=== PATIENT | male | born 1955 | race Hispanic/Latino ===

== ENCOUNTER → 2022-11-12 | Outpatient (CLI) | payer MEDICARE ==
[~2022-11-12] MED LIST: IOPAMIDOL 370 MG/ML 100 ML INFUS..BTL INJ ONE; SODIUM CHLORIDE 0.9% 100 ML ONE; SODIUM CHLORIDE 0.9% 500ML 500 ML ONE
[2022-11-12 13:49] LABS: CREATININE, SERUM 1.76 mg/dL (0.72-1.25)
== END ==
LOC: CT 12:58
PROVIDERS: ATTEND Internal Medicine Cardiovascular Disease
DX: I34.0 Nonrheumatic mitral (valve) insufficiency (principal); I50.30 Unspecified diastolic (congestive) heart failure; I07.1 Rheumatic tricuspid insufficiency
CPT/HCPCS: 36415; 75635; 82565; 84520; 96360; J7040; J7050; Q9967